=== PATIENT | female | born 1955 | race Caucasian/White ===

== ENCOUNTER → 2017-04-14 | Outpatient (CLI) | payer BC ==
--- NOTE | 2017-04-14 10:59 | MAM ---
EXAM DESCRIPTION: 3D Screening BILATERAL : Digital Mammography. CLINICAL HISTORY: 61 years Female SCREENING right breast cancer 1996 with mastectomy. Remote family history of breast cancer. Postmenopausal. Currently on HRT. Bilateral breast augmentation. COMPARISON: Left breast digital screening studies 04/01/2016 and 10/11/2013.. No prior reports available. Reports from prior examinations also reviewed. Report from prior examination also reviewed. TECHNIQUE: Left breast CC and MLO projection full-field images, 3-D tomosynthesis and Graciela implant displacement digital mammographic technique. Left breast 2-D- CC and MLO full-field images. Also left breast synthesized CC/ MLO Graciela implant displacement full-field images. CAD not utilized. FINDINGS: Left breast parenchymal density pattern is: Heterogeneously dense breast tissue, which may obscure small masses. No skin thickening or nipple retraction intramammary lymph nodes. Implant border where seen appears intact. Saline type, retromuscular. No focal, stellate mass or density, focal asymmetry , and no suspicious microcalcifications left breast. Stable mammograms compared to prior study, taking into account differences in mammographic technique IMPRESSION: BI-RADS CATEGORY: 2 - BENIGN FINDINGS. FOLLOW UP: Routine digital left breast screening, one year interval from April 2017. Written communication explaining the IMPRESSION and follow-up, will be mailed to the patient and referring health care provider. According to the [employer], yearly mammograms are recommended starting at age 40 and continuing as long as a woman is in good health. Any breast change noted on a breast self-exam should be reported promptly to the patient's healthcare provider. Breast MRI is recommended for women with an approximately 20-25% or greater lifetime risk of breast cancer, including women with a strong family history of breast or ovarian cancer and women who have been treated for Hodgkin's disease. A negative mammographic report should not delay tissue diagnosis in patients with significant clinical history or physical findings. Extremely dense breast tissue limits the sensitivity of digital mammography. Electronically signed by: Ivan Peng MD 04/14/2017 10:58 AM [facility]
== END | disposition home or self-care (01) ==
LOC: MAMMO 10:04
PROVIDERS: ATTEND Family Medicine
DX: Z12.31 Encounter for screening mammogram for malignant neoplasm of breast (principal)
CPT/HCPCS: 77063; G0202

== ENCOUNTER → 2017-06-20 | Outpatient (CLI) | payer BC | END | disposition home or self-care (01) | LOC: GMAJ 11:56 | PROVIDERS: ATTEND Family Medicine | DX: E03.9 Hypothyroidism, unspecified (principal) ==

== ENCOUNTER 2017-07-31 06:45 | Day surgery (SDC) | payer BC ==
[2017-07-31] MEDS ORDERED: PROPOFOL 200 MG/20 ML VIAL IV ONE ×2 (06:46→10:00)
[2017-07-31 07:52] VITALS: O2SAT 100
[2017-07-31] MEDS ORDERED: LACTATED RINGERS 1,000 ML ONE (08:36)
--- NOTE | 2017-07-31 09:52 | OP ---
DATE OF PROCEDURE: 07/31/17 INDICATION: Age greater than 50 with no previous colonoscopy. POSTOPERATIVE DIAGNOSIS: 1. Colonoscopy completed to the cecum with adequate prep. 2. Multiple polyps with two 4 mm polyps noted in the cecum, both biopsied to remove with straight forceps biopsy. 3. Three 4 to 6 mm polyps in the proximal transverse colon which were biopsied and removed with straight forceps biopsy. 4. One 4 to 6 mm polyp noted in the distal transverse colon and removed with straight forceps biopsy. 5. One polyp in the proximal descending colon which was 6 mm in size and was biopsied and then destroyed with straight forceps biopsy. Good hemostasis noted. PROCEDURE: 1. Colonoscopy plus polypectomies. SURGEON: Sukhi Paulino MD ANESTHESIA: Per Ramin Cha CRNA. COMPLICATIONS: None apparent. TECHNIQUE: The patient was brought to the GI lab and laid in the left lateral decubitus position. Digital rectal exam was performed and found to be normal. The colonoscope was inserted into the rectum and very slowly up into the sigmoid colon. There were some difficult turns in that portion of the colon. Once we moved passed the sigmoid colon, we were able to get into the descending and through the transverse and up into the cecum. The cecum was visualized fairly well. There was some fecal material there. This was suctioned. There were two small polyps noted in the cecal area and these were both biopsied with tissue samples taken and then the polyps were destroyed with straight forceps biopsy. These were both 4 mm in size. The scope was withdrawn into the ascending colon, which appeared normal, and up into the proximal portion of the transverse colon, right where the transverse colon joins with the ascending colon, there were several polyps noted in that area. Three polyps which were in the proximal transverse colon, all were 4 to 6 mm in size, all were removed with the straight forceps biopsy and then destroyed subsequently with the straight forceps biopsy. All had good hemostasis. The scope was withdrawn through the transverse colon, into the distal portion of the transverse colon and another small polyp was noted, again 4 to 6 mm in size, and this was removed with the straight forceps biopsy. Good hemostasis was achieved. The scope was then withdrawn into the proximal descending colon where another polyp was noted. This was a little bit larger at 6 to 8 mm in size. This was removed with the straight forceps biopsy as well with good hemostasis achieved. The scope was then withdrawn through the remaining portion of the descending colon and into the sigmoid colon. No other abnormalities were found. The scope was pulled back into the rectum. Retroflexion was attempted, but due to the tight nature of this area on this particular patient, we were unable to retroflex. The scope was withdrawn very slowly back through the rectum. The patient tolerated the procedure well. DISPOSITION: She will be discharged home when she is cleared from Anesthesia standpoint. Due to the somewhat difficult nature of the colon, especially in the proximal portion as well as the multiple polyps that we found, I would recommend repeat colonoscopy in one year and consideration for a gastroenterology consult at that time. #[id number] [facility]T HOSPITALSunitha
[2017-07-31 10:21] VITALS: BP 118/72; TEMP 97.3
== END 2017-07-31 10:05 | disposition home or self-care (01) ==
LOC: AMB 06:45
PROVIDERS: ATTEND Family Medicine
DX: Z12.11 Encounter for screening for malignant neoplasm of colon (principal); D12.0 Benign neoplasm of cecum; D12.4 Benign neoplasm of descending colon; D12.3 Benign neoplasm of transverse colon; E03.9 Hypothyroidism, unspecified; J45.909 Unspecified asthma, uncomplicated; F41.9 Anxiety disorder, unspecified; E78.2 Mixed hyperlipidemia; Z88.0 Allergy status to penicillin; Z88.2 Allergy status to sulfonamides; F32.9 Major depressive disorder, single episode, unspecified; Z85.3 Personal history of malignant neoplasm of breast; Z85.41 Personal history of malignant neoplasm of cervix uteri; Z79.899 Other long term (current) drug therapy
CPT/HCPCS: 00812; 45380; J3490; J7120

== ENCOUNTER → 2018-05-18 | Outpatient (CLI) | payer BC ==
--- NOTE | 2018-05-18 16:49 | MAM ---
EXAM DESCRIPTION: 3D Screening LEft : Digital Mammography. CLINICAL HISTORY: 62 years Female ANNUAL SCREENING personal history of breast cancer right breast in 1995. Right mastectomy. Lifetime risk of developing breast cancer (Tyrer-Cuzick model)(%): Calculated due to personal history of breast cancer. COMPARISON: Left breast screening digital tomosynthesis 05/18/2018. TECHNIQUE: Left CC and MLO projection full-field images, with Graciela Implant Displacement digital tomosynthesis mammographic technique. Left 2-D digital full-field images, MLO and CC projections, non-displaced. CAD left digital 2-D full-field MLO images. CAD not available for tomosynthesis or 2-D images. FINDINGS: Left breast parenchymal density pattern is: Heterogeneously dense breast tissue, which may obscure small masses. Extremely dense breast tissue, which lowers the sensitivity of mammography. No skin thickening or nipple retraction. Solitary microcalcifications. Vascular calcifications. Subglandular saline implant. Capsule appears intact where seen. No new focal, stellate mass or density, focal asymmetry , and no suspicious microcalcifications left breast. Stable mammograms compared to prior study. Taking into account, differences in mammographic technique. IMPRESSION: Benign exam. BIRAD CATEGORY: 2 BENIGN FINDINGS. RECOMMENDATIONS: FOLLOW UP: Routine digital bilateral mammographic screening, one year interval from May 2018. Written communication explaining the IMPRESSION and follow-up, will be mailed to the patient and referring health care provider. According to the [employer], yearly mammograms are recommended starting at age 40 and continuing as long as a woman is in good health. Any breast change noted on a breast self-exam should be reported promptly to the patient's healthcare provider. Breast MRI is recommended for women with an approximately 20-25% or greater lifetime risk of breast cancer, including women with a strong family history of breast or ovarian cancer and women who have been treated for Hodgkin's disease. A negative mammographic report should not delay tissue diagnosis in patients with significant clinical history or physical findings. Extremely dense breast tissue limits the sensitivity of digital mammography. Electronically signed by: Ivan Peng MD 05/18/2018 4:48 PM [employer]
== END ==
LOC: MAMMO 09:30
PROVIDERS: ATTEND Family Medicine
DX: Z12.31 Encounter for screening mammogram for malignant neoplasm of breast (principal)

== ENCOUNTER → 2019-02-08 | Outpatient (CLI) | payer MEDICARE | LOC: GMAM 10:54 | PROVIDERS: ATTEND Family Medicine | DX: E53.8 Deficiency of other specified B group vitamins (principal); E03.9 Hypothyroidism, unspecified; E78.2 Mixed hyperlipidemia; Z79.899 Other long term (current) drug therapy ==

== ENCOUNTER → 2020-04-06 | Outpatient (CLI) | payer MEDICARE ==
--- NOTE | 2020-04-07 09:34 | MRI ---
Study: MRI of the Left Elbow. Indication: ANTERIOR DISLOCATION OF LEFT ULNOHUMERAL JT Technique: Multiplanar, multi sequence MRI of the left elbow was obtained without intravenous contrast. Comparison: None Findings: Extensive subcutaneous edema about the elbow. Rupture of the common flexor tendon origin with retraction of torn tendon fibers distally by at least 2 cm. The tear is contiguous with tearing of the mid substance of the pronator teres muscle with fluid extending from the joint space into this defect. Rupture of the proximal margin ulnar collateral ligament noted as well. High-grade strain common extensor tendon origin with suspected low to intermediate grade partial-thickness tearing but difficult to characterize due to poor fat saturation at this site. At least partial thickness tearing of the radial collateral ligament and lateral ulnar collateral ligament proximally. Biceps, brachialis, triceps tendon insertions intact. Ulnar nerve intact. Large elbow effusion. Osseous contusion posterior margin capitellum. No contusion or fracture of the radial head/neck. The trochlea directly abuts the anterior margin of the coronoid process with a tiny fracture of the anterior margin of the coronoid process suspected. Sequela of a posterior olecranon dislocation-relocation event suspected. There is widening of the central and posterior aspect of the ulnar-trochlear compartment. Impression: Findings suggestive of a posterior olecranon dislocation-relocation event with a tiny fracture of the anterior coronoid process as well as a contusion of the posterior margin capitellum. Associated large joint effusion. No radial head/neck fracture. Rupture of the common extensor flexor tendon origin and ulnar collateral ligament with high-grade tear of the overlying pronator teres muscle. High-grade common extensor tendinosis with suspected low to intermediate partial-thickness tearing as well as at least partial thickness tearing of the proximal margins of the radial collateral ligament and lateral ulnar collateral ligament. Additional findings as above. Electronically signed by: Garrett Piña MD 04/07/2020 9:33 AM [employer]
== END ==
LOC: MRI 13:00
PROVIDERS: ATTEND Family Medicine
DX: S53.115A Anterior dislocation of left ulnohumeral joint, initial encounter (principal); S53.442A Ulnar collateral ligament sprain of left elbow, initial encounter; M66.232 Spontaneous rupture of extensor tendons, left forearm; M77.9 Enthesopathy, unspecified

== ENCOUNTER → 2020-05-09 | Outpatient (CLI) | payer MEDICARE | LOC: GMAM 10:46 | PROVIDERS: ATTEND Family Medicine | DX: E03.9 Hypothyroidism, unspecified (principal); E78.2 Mixed hyperlipidemia ==